=== PATIENT | male | born 1995 | race Caucasian/White ===

== ENCOUNTER 2023-11-30 15:30 | Outpatient (OUT) | payer MEDICAID, SELFPAY | END 2023-11-30 15:31 | disposition home or self-care (01) | LOC: SLEEP 12-01 16:11 | PROVIDERS: Family Provider Family Medicine; PCP Internal Medicine; Visit Provider Internal Medicine | DX: G47.33 Obstructive sleep apnea (adult) (pediatric) (principal) | CPT/HCPCS: 95806 ==